=== PATIENT | male | born 1955 | race Caucasian/White ===

== ENCOUNTER 2016-12-01 17:40 | Observation (INO) | payer OTHER ==
[2016-12-01 19:31] LABS: BASOPHILS % (AUTO) 1 % (0-3); EOSINOPHILS % (AUTO) 1 % (0-9); HEMATOCRIT 41 % (39-53); MEAN CORPUSCULAR HGB CONC 34.8 gm/dl (32.0-36.0); MEAN CORPUSCULAR VOLUME 88 fL (80-100); MONOCYTES % (AUTO) 6.2 % (0-12); NEUTROPHILS % (AUTO) 69.9 % (37-80)
[2016-12-01] MEDS ORDERED: TDAP VACCINE 0.5 ML SUS IM ONE ×2 (19:46→19:49)
[2016-12-01 19:48] LABS: CALCIUM 8.3 mg/dl (8.5-10.1); POTASSIUM 3.4 mMol/L (3.5-5.1)
[2016-12-01] MEDS ORDERED: KETOROLAC TROMETHAMINE 30 MG/ML SOL IV ONE (19:57)
[2016-12-01] MEDS ORDERED: SODIUM CHLORIDE 0.9% FLUSH 10 ML SOL IV PRN (20:00)
[2016-12-01] MEDS ORDERED: KETOROLAC TROMETHAMINE 30 MG/ML SOL ONE (20:00)
[2016-12-01] MEDS ORDERED: ACETAMINOPHEN 500 MG 500 MG TAB PO PRN (21:13)
[2016-12-01] MEDS ORDERED: KETOROLAC TROMETHAMINE 30 MG/ML SOL IV PRN (21:14)
[2016-12-01] MEDS ORDERED: ONDANSETRON 4 MG ODT BU PRN (21:18)
[2016-12-01 23:57] VITALS: TEMP 97.7
[2016-12-02 07:44] VITALS: BP 129/77; PULSE 61; RESP 16; O2SAT 96
[2016-12-02] MEDS ORDERED: PAROXETINE HYDROCHLORIDE 20 MG TAB PO SCH (09:00)
[2016-12-02] MEDS ORDERED: OXYBUTYNIN ER 15MG TER PO SCH (09:00)
[2016-12-02] MEDS ORDERED: AMLODIPINE 5 MG TAB PO SCH (09:00)
[2016-12-02] MEDS ORDERED: POTASSIUM CHLORIDE 10 MEQ TER PO SCH (09:00)
[2016-12-02] MEDS ORDERED: METOPROLOL SUCCINATE 50 MG ER TAB PO SCH (09:00)
[2016-12-02] MEDS ORDERED: ASPIRIN EC 81 MG PO SCH (09:00)
[2016-12-02] MEDS ORDERED: PANTOPRAZOLE SODIUM 40 MG ECT PO SCH (09:00)
[2016-12-02] MEDS ORDERED: HYDROCHLOROTHIAZIDE 25 MG TAB PO SCH (09:00)
[2016-12-02] MEDS ORDERED: PNEUMOCOCCAL VACCINE 0.5 ML SOL IM ONE (09:46)
== END 2016-12-02 10:25 | disposition home or self-care (01) ==
LOC: ED 17:40 → ACUTE CARE 20:09
PROVIDERS: ADMIT Family Medicine; ATTEND Family Medicine
DX: S00.81XA Abrasion of other part of head, initial encounter (principal); V18.4XXA Pedal cycle driver injured in noncollision transport accident in traffic accident, initial encounter; F10.129 Alcohol abuse with intoxication, unspecified; Y90.7 Blood alcohol level of 200-239 mg/100 ml
CPT/HCPCS: 99285 ×3; 70450; 70486; 80048; 80307; 85025; 90715; 90732; G0008; J1885 ×2; 36415; A4450; A6232

== ENCOUNTER 2017-04-17 11:10 | Outpatient (CLI) | payer OTHER ==
[2016-12-02 07:44] VITALS: O2SAT 96
== END 2017-04-17 11:11 | disposition home or self-care (01) ==
LOC: CONVCARE 11:10
PROVIDERS: ATTEND Orthopaedic Surgery
DX: M75.41 Impingement syndrome of right shoulder (principal)
CPT/HCPCS: 73030